=== PATIENT | male | born 1950 | race Caucasian/White ===

== ENCOUNTER 2016-12-16 09:57 | Emergency (ER) | payer MEDICARE, OTHER ==
[~2016-12-16] VITALS: Ht 175.3 cm; Wt 105.0 kg
[2016-12-16 10:02] VITALS: BP 117/60; PULSE 77; RESP 16; TEMP 98.4; O2SAT 96
--- NOTE | 2016-12-16 10:13 | PD ---
HPI Chief Complaint: Cold / Flu Symptoms Time Seen by Provider: 10:05 Travel History International Travel<30 days: No Contact w/Intl Traveler<30days: No Traveled to known affect area: No History of Present Illness HPI This patient was worried about having pneumonia. He's had a cough for 3 or 4 days. He has some congestion. He went to an urgent care center 2 days ago and was started on Zithromax and Tessalon Perles. He denies fever. He is not short of breath. No history of chronic lung disease PFSH Social History Alcohol Use: No Tobacco Use: No Substance Use: No Allergies-Medications (Allergen,Severity, Reaction): Coded Allergies: No Known Allergies (Unverified , 12/16/16) Review of Systems HENT: No: Headaches Respiratory: Positive: Cough Gastrointestinal: No: Vomiting Physical Exam Narrative RESPIRATORY: Respiratory effort unlabored, no retractions or use of accessory muscles. Breath sounds are clear and symmetric. NECK: Symmetrical appearance, midline trachea. No mass or crepitus. Thyroid without enlargement, tenderness, or mass. SKIN: Focused skin assessment reveals no rash or ulcers. Skin is warm and dry. Palpation shows no induration or nodules. Data Data Last Documented VS Vital Signs Date Time Temp Pulse Resp B/P Pulse Ox O2 Delivery O2 Flow Rate FiO2 12/16/16 10:02 98.4 77 16 117/60 96 Room Air MDM Medical Decision Making Medical Screen Exam Complete: Yes Emergency Medical Condition: Yes Medical Record Reviewed: Yes Differential Diagnosis Bronchitis, URI, pneumonia Narrative Course I have reviewed the patient's electronic medical record. Patient looks clinically well. He is currently on antibiotics Is most likely viral bronchitis He should continue his antibiotics and follow-up with primary care Diagnosis Primary Impression: Acute viral bronchitis Additional Instructions: The patient was advised to follow up with their physician and return if they worsen. Med/Other Pt SpecificInfo: Other Disposition: 01 DISCHARGE HOME Condition: Stable Dawson Cassidy MD December 16, 2016 10:13
[2016-12-16] MEDS ORDERED: ASPI325T PO (10:16)
[2016-12-16] MEDS ORDERED: FURO20TA PO (10:16)
[2016-12-16] MEDS ORDERED: BYST2.5T2 PO (10:16)
[2016-12-16] MEDS ORDERED: ENAL5TAB PO (10:16)
[2016-12-16] MEDS ORDERED: ATOR10TA15 PO (10:16)
[2016-12-16] MEDS ORDERED: METH5TAB3 PO (10:16)
[2016-12-16] MEDS ORDERED: GLYB2.5T3 PO (10:16)
[2016-12-16] MEDS ORDERED: TRAM50TA PO (10:16)
[2016-12-16] MEDS ORDERED: AZIT500T2 PO (10:17)
== END 2016-12-16 10:49 | disposition home or self-care (01) ==
LOC: PHED 09:57
DX: J20.8 Acute bronchitis due to other specified organisms (principal)
CPT/HCPCS: 99283